=== PATIENT | male | born 1995 | race Caucasian/White ===

== ENCOUNTER 2017-11-25 10:42 | Emergency (ER) | payer MEDICAID, OTHER ==
[~2017-11-25] VITALS: Ht 182.9 cm; Wt 65.8 kg
--- NOTE | 2017-11-25 10:42 | NUR ---
c/o abd pain w. N/V since yesterday, alcohol consumption yesterday. Pt appears very anxious. placed on cont cardiac and pox montiroing. will cont to monitor
[2017-11-25] MEDS ORDERED: PANTOPRAZOLE 40 MG VIAL ONE (11:14)
[2017-11-25] MEDS ORDERED: ONDANSETRON HCL/PF 4 MG/2 ML VIAL ONE ×2 (11:15→12:37)
[2017-11-25 11:30] LABS: BASOPHILS # (AUTO) 0.7 /CMM (0.0-0.2); BASOPHILS % (AUTO) 2.9 % (0.0-2.0); HEMATOCRIT 50 % (39-51); HEMOGLOBIN 17.8 g/dL (13.5-17.5); LYMPHOCYTES # (AUTO) 0.4 /CMM (0.8-4.8); LYMPHOCYTES % (AUTO) 1.8 % (20.0-44.0); MEAN CORPUSCULAR HEMOGLOBIN 35 PG (26.0-33.0); MEAN CORPUSCULAR HGB CONC 36 g/dl (31.0-36.0); MEAN CORPUSCULAR VOLUME 98 fL (80-96); MONOCYTES # (AUTO) 0.3 /CMM (0.1-1.30); MONOCYTES % (AUTO) 1.3 % (2.0-12.0); NEUTROPHILS # (AUTO) 22.8 /CMM (1.8-8.9); PLATELET COUNT (AUTO) 307 /CMM (150-450); RDW COEFFICIENT OF VARIATION 12.9 (11.5-15.0); WHITE BLOOD COUNT (AUTO) 24.2 K/uL (4.3-11.0)
[2017-11-25] MEDS ORDERED: ONDANSETRON HCL/PF 4 MG/2 ML VIAL IVP ONE ×2 (11:30→12:30)
[2017-11-25] MEDS ORDERED: PANTOPRAZOLE 40 MG VIAL IV ONE (11:30)
[2017-11-25 11:41] LABS: CALCIUM, SERUM 10.7 mg/dL (8.5-10.1); CREATININE 1.1 mg/dL (0.6-1.3); POTASSIUM 3.7 mmol/L (3.5-5.1)
[2017-11-25 11:47] LABS: ALBUMIN 5.3 g/dL (3.4-5.0); BILIRUBIN,DIRECT 0.2 mg/dL (0.0-0.2); BILIRUBIN,TOTAL 1.4 mg/dL (0.2-1.0); TOTAL PROTEIN, SERUM 9.2 g/dL (6.4-8.2)
[2017-11-25 12:22] LABS: LYMPHOCYTES % (MANUAL) 1 % (16-48); MONOCYTES % (MANUAL) 2 % (0-11.0); NEUTROPHILS % (MANUAL) 97 (42-76)
[2017-11-25] MEDS ORDERED: IV NS 0.9% 1,000 ML BAG IV ONE (12:30)
--- NOTE | 2017-11-25 12:40 | NUR ---
PT IS ABCK FROM CT
[2017-11-25 13:36] VITALS: BP 112/60
--- NOTE | 2017-11-25 13:36 | NUR ---
Patient discharged to home in stable condition. Written and verbal after care instructions given. Patient verbalizes understanding of instruction.IV removed. Catheter intact and site benign. Pressure and 4x4 applied to site. No bleeding noted.
== END 2017-11-25 13:37 | disposition home or self-care (01) ==
LOC: ER 10:45
DX: K29.60 Other gastritis without bleeding (principal); F10.10 Alcohol abuse, uncomplicated; F32.9 Major depressive disorder, single episode, unspecified; Y90.9 Presence of alcohol in blood, level not specified
CPT/HCPCS: 36415; 80048-TC; 80076-TC; 83690-TC; 85025-TC; 86850-TC; A4606; C9113; J2405; J7030; Z7610

== ENCOUNTER 2017-11-26 08:25 | Emergency (ER) | payer MEDICAID, OTHER ==
[~2017-11-26] VITALS: Ht 185.4 cm; Wt 65.8 kg
--- NOTE | 2017-11-26 08:40 | NUR ---
AAOX3, CAME TO ER BIB DAD C/O DIFFUSED ABDOMINAL PAIN, N/V X 3 DAYS. PATIENT WAS SEEN HERE YESTERDAY FOR SAME REASON. SKIN IS WARM AND DRY. DR DELGADO AT FOR EVAL. DENIES DIARRHEA.
[2017-11-26] MEDS ORDERED: METOCLOPRAMIDE HCL 10 MG/2 ML VIAL IV ONE (09:00)
[2017-11-26] MEDS ORDERED: IV NS 0.9% 1,000 ML BAG IV ONE (09:00)
[2017-11-26] MEDS ORDERED: FAMOTIDINE/PF INJ 20 MG/2 ML VIAL IV ONE ×2 (09:00→09:04)
[2017-11-26] MEDS ORDERED: METOCLOPRAMIDE HCL 10 MG/2 ML VIAL ONE (09:04)
[2017-11-26 09:12] LABS: BASOPHILS # (AUTO) 0.1 /CMM (0.0-0.2); BASOPHILS % (AUTO) 0.5 % (0.0-2.0); HEMATOCRIT 46 % (39-51); HEMOGLOBIN 16.1 g/dL (13.5-17.5); LYMPHOCYTES # (AUTO) 1.1 /CMM (0.8-4.8); LYMPHOCYTES % (AUTO) 7.1 % (20.0-44.0); MEAN CORPUSCULAR HEMOGLOBIN 35 PG (26.0-33.0); MEAN CORPUSCULAR HGB CONC 35 g/dl (31.0-36.0); MEAN CORPUSCULAR VOLUME 99 fL (80-96); MONOCYTES # (AUTO) 0.8 /CMM (0.1-1.30); MONOCYTES % (AUTO) 5.6 % (2.0-12.0); NEUTROPHILS % (AUTO) 86.8 % (43.0-81.0); PLATELET COUNT (AUTO) 242 /CMM (150-450); RDW COEFFICIENT OF VARIATION 13.1 (11.5-15.0); RED BLOOD CELL COUNT(AUTO) 4.61 MIL/uL (4.5-6.0)
[2017-11-26 09:32] LABS: CALCIUM, SERUM 9.8 mg/dL (8.5-10.1); CREATININE 0.8 mg/dL (0.6-1.3); POTASSIUM 3.7 mmol/L (3.5-5.1)
[2017-11-26 09:37] LABS: ALBUMIN 4.5 g/dL (3.4-5.0); BILIRUBIN,DIRECT 0.2 mg/dL (0.0-0.2); BILIRUBIN,TOTAL 1.1 mg/dL (0.2-1.0); TOTAL PROTEIN, SERUM 7.9 g/dL (6.4-8.2)
[2017-11-26] MEDS ORDERED: ONDANSETRON HCL/PF - ER 4 MG/2 ML VIAL IV ONE (10:30)
[2017-11-26] MEDS ORDERED: MAG HYDROX/AL HYDROX/SIMETH 30 ML UDC PO ONE (10:30)
[2017-11-26] MEDS ORDERED: ONDANSETRON HCL/PF 4 MG/2 ML VIAL ONE (10:46)
[2017-11-26] MEDS ORDERED: MAG HYDROX/AL HYDROX/SIMETH 30 ML UDC ONE (10:46)
--- NOTE | 2017-11-26 11:58 | NUR ---
PO CHALLENGE TOLERATED BY PATIENT. DR DELGADO MADE AWARE.
[2017-11-26 12:06] VITALS: BP 116/72
--- NOTE | 2017-11-26 12:06 | NUR ---
IV removed. Catheter intact and site benign. Pressure and 4x4 applied to site. No bleeding noted.Patient discharged to home in stable condition. Written and verbal after care instructions given. Patient verbalizes understanding of instruction.
== END 2017-11-26 12:08 | disposition home or self-care (01) ==
LOC: ER 08:27
DX: R10.13 Epigastric pain (principal); R11.2 Nausea with vomiting, unspecified; F32.9 Major depressive disorder, single episode, unspecified
CPT/HCPCS: 36415; 80048-TC; 80076-TC; 83690-TC; 85025-TC; A4216; A4606; J2405; J2765; J3490; J7030; Z7610